=== PATIENT | female | born 1940 | race Caucasian/White ===

== ENCOUNTER → 2017-03-18 | Outpatient (CLI) | payer BC ==
[~2017-03-18] MED LIST: ASPI81TA28 PO; ATOR10TA82 PO; CLC/300 PO; FURO-85 PO; LISI-729 PO; METO25TA56 PO; MULT-513 PO
[2017-03-18 16:27] LABS: HEMATOCRIT 43.6 % (37-47); MEAN CELL VOLUME 91.6 fL (80-100); MEAN CORPUSCULAR HEMOGLOBIN 29.4 pg (25-34); MEAN CORPUSCULAR HGB CONC 32.1 g/dl (32-36); MEAN PLATELET VOLUME 12.4 fL (7.4-10.4); PLATELET COUNT 202 K/uL (130-400); RED BLOOD COUNT 4.76 M/uL (4.2-5.4); WHITE BLOOD COUNT 3.61 K/uL (4.8-10.8)
[2017-03-18 16:41] LABS: ALT/SGPT 47 U/L (12-78); AST/SGOT 28 U/L (15-37); BLOOD UREA NITROGEN 14 mg/dl (7-18); BUN/CREATININE RATIO 21.4 (10-20); CALCIUM 9.3 mg/dl (8.5-10.1); CARBON DIOXIDE 31 mmol/L (21-32); CHLORIDE 108 mmol/L (98-107); CREATININE 0.63 mg/dl (0.60-1.20); GLUCOSE 84 mg/dl (70-99); POTASSIUM 4.3 mmol/L (3.5-5.1); SODIUM 143 mmol/L (136-145)
[2017-03-18 16:43] LABS: ALB/GLOB RATIO 1.2 (0.9-2); ALKALINE PHOSPHATASE 83 U/L (45-117); CHOLESTEROL 179 mg/dl (0-200); CHOLESTEROL/HDL RATIO 2.8; HDL CHOLESTEROL 63 mg/dl; LDL CHOLESTEROL CALCULATED 98 mg/dl; TRIGLYCERIDES 90 mg/dl (0-150); VERY LOW DENSITY LIPOPROT CALC 18 mg/dl
== END | disposition home or self-care (01) ==
LOC: C.LABBFT 11:35
PROVIDERS: ATTEND Internal Medicine
DX: I25.10 Atherosclerotic heart disease of native coronary artery without angina pectoris (principal); E78.5 Hyperlipidemia, unspecified

== ENCOUNTER → 2017-05-02 | Outpatient (CLI) | payer BC ==
--- NOTE | 2017-05-02 13:13 | DIAGNOSTIC IMAGING REPORT ---
RIGHT ANKLE MIN 3 VIEWS ROUTINE CLINICAL HISTORY: Right ankle pain. Trauma. COMPARISON: None. DISCUSSION: No acute fractures or dislocations are visualized. The ankle mortise appears intact. There is minimal soft tissue swelling. There is no evidence for soft tissue swelling. IMPRESSION: No acute fractures or dislocations identified. Electronically signed by: Bob Posey M.D. 05/02/2017 1:11 PM Dictated Date/Time: 05/02/2017 1:11 PM
== END | disposition home or self-care (01) ==
LOC: C.RAD 12:37
PROVIDERS: ATTEND Physician Assistant Medical
DX: M25.571 Pain in right ankle and joints of right foot (principal)

== ENCOUNTER → 2017-10-03 | Outpatient (CLI) | payer BC ==
[2017-10-03 12:27] LABS: HEMATOCRIT 45.6 % (37-47); MEAN CELL VOLUME 90.7 fL (80-100); MEAN CORPUSCULAR HEMOGLOBIN 30.2 pg (25-34); MEAN CORPUSCULAR HGB CONC 33.3 g/dl (32-36); MEAN PLATELET VOLUME 12.4 fL (7.4-10.4); PLATELET COUNT 196 K/uL (130-400); RED BLOOD COUNT 5.03 M/uL (4.2-5.4); WHITE BLOOD COUNT 4.76 K/uL (4.8-10.8)
[2017-10-03 12:36] LABS: ALT/SGPT 27 U/L (12-78); BLOOD UREA NITROGEN 16 mg/dl (7-18); BUN/CREATININE RATIO 27.1 (10-20); CALCIUM 9.7 mg/dl (8.5-10.1); CARBON DIOXIDE 28 mmol/L (21-32); CHLORIDE 106 mmol/L (98-107); CHOLESTEROL 203 mg/dl (0-200); CREATININE 0.59 mg/dl (0.60-1.20); GLUCOSE 90 mg/dl (70-99); POTASSIUM 4.2 mmol/L (3.5-5.1); SODIUM 141 mmol/L (136-145); TRIGLYCERIDES 120 mg/dl (0-150); VERY LOW DENSITY LIPOPROT CALC 24 mg/dl
[2017-10-03 12:39] LABS: ALB/GLOB RATIO 1.2 (0.9-2); ALKALINE PHOSPHATASE 90 U/L (45-117); AST/SGOT 18 U/L (15-37); HDL CHOLESTEROL 68 mg/dl; LDL CHOLESTEROL CALCULATED 111 mg/dl
== END | disposition home or self-care (01) ==
LOC: C.LABBFT 10:26
PROVIDERS: ATTEND Internal Medicine
DX: E78.5 Hyperlipidemia, unspecified (principal); I25.10 Atherosclerotic heart disease of native coronary artery without angina pectoris

== ENCOUNTER → 2017-10-11 | Outpatient (CLI) | payer BC ==
[2017-10-11 18:10] LABS: LYME DISEASE AB IGG NEG (NEG); LYME DISEASE AB IGM NEG (NEG)
== END | disposition home or self-care (01) ==
LOC: C.LABBFT 14:39
PROVIDERS: ATTEND Internal Medicine
DX: T14.8XXA Other injury of unspecified body region, initial encounter (principal); W57.XXXA Bitten or stung by nonvenomous insect and other nonvenomous arthropods, initial encounter

== ENCOUNTER → 2018-06-22 | Outpatient (CLI) | payer BC ==
--- NOTE | 2018-06-22 16:01 | MAMMOGRAPHY REPORT ---
BILATERAL DIGITAL SCREENING MAMMOGRAM TOMOSYNTHESIS WITH CAD: 06/22/2018 TECHNIQUE: The study was acquired using full field digital technology and interpreted from soft copy. Breast tomosynthesis in addition to standard 2D mammography was performed. Current study was also ev aluated with a Computer Aided Detection (CAD) system. COMPARISON: Comparison is made to exams dated: 01/16/2015 mammogram, 01/14/2014 mammogram, 01/11/2013 m ammogram, 01/10/2012 mammogram, and 01/07/2011 mammogram - [facility]. BREAST COMPOSITION: There are scattered areas of fibroglandular density in both breasts. FINDINGS: No suspicious masses, calcifications, or areas of architectural distortion are noted in either breast . There has been no significant interval change compared to prior exams. Asymmetries in the left sub areolar breast on the cc view are stable compared to multiple prior exams including the 2010 exam. IMPRESSION: ACR BI-RADS CATEGORY 2: BENIGN There is no mammographic evidence of malignancy. A 1 year screening mammogram is recommended.( 019) The patient will receive written notification of the results. Some breast cancers are not detected with mammography. A negative mammographic report should not joan y biopsy if a clinically suggestive mass is present. Maureen Iyer M.D. ah/:06/22/2018 15:14:45 Compliance Nurse: RT Guillermo(R)(M), [facility] letter sent: Normal 1/2 BI-RADS Code: ACR BI-RADS Category 2: Benign
== END | disposition home or self-care (01) ==
LOC: C.MAMM 13:47
PROVIDERS: ATTEND Internal Medicine
DX: M85.852 Other specified disorders of bone density and structure, left thigh (principal); M85.88 Other specified disorders of bone density and structure, other site; Z12.31 Encounter for screening mammogram for malignant neoplasm of breast

== ENCOUNTER 2019-06-09 03:51 | Observation (INO) ==
[2019-06-09 04:43] LABS: Basophils # (auto) 0.05 K/uL (0-0.2); Eosinophils # (auto) 0.28 K/uL (0-0.5); Eosinophils % (auto) 5.6 %; Hematocrit (blood only) 45.3 % (37-47); Hemoglobin 15.3 g/dL (12.0-16.0); Immature Granulocytes # (auto) 0.01 K/uL (0.00-0.02); Immature Granulocytes % (auto) 0.2 %; Lymphocytes # (auto) 2.24 K/uL (1.2-3.4); Lymphocytes % (auto) 44.7 %; Mean Corpuscular Hgb Conc 33.8 g/dL (32-36); Mean Corpuscular Volume 91.9 fL (80-100); Mean Platelet Volume 12.8 fL (7.4-10.4); Monocytes # (auto) 0.34 K/uL (0.11-0.59); Monocytes % (auto) 6.8 %; Neutrophils # (auto) 2.09 K/uL (1.4-6.5); Neutrophils % (auto) 41.7 %; Platelet Count 197 K/uL (130-400); RDW Coefficient of Variation 12.7 % (11.5-14.5); RDW Standard Deviation 42.7 fL (36.4-46.3); Red Blood Count 4.93 M/uL (4.2-5.4); White Blood Count 5.01 K/uL (4.8-10.8)
[2019-06-09 04:59] LABS: Alanine Aminotransferase 31 U/L (12-78); Albumin Globulin Ratio 1.3 (0.9-2); Albumin Level 4.1 gm/dl (3.4-5.0); Alkaline Phosphatase 90 U/L (45-117); Aspartate Aminotransferase 24 U/L (15-37); BUN Creatinine Ratio 25.2 (10-20); Bilirubin,Total 1.7 mg/dl (0.2-1); Blood Urea Nitrogen 17 mg/dl (7-18); Carbon Dioxide 27 mmol/L (21-32); Chloride 106 mmol/L (98-107); Creatinine Clr Calc Pharmacy 55.6 ml/min; Est GFR (African American) 97.1; Est GFR (Non-African American) 83.8; Globulin 3.1 gm/dl (2.5-4.0); Glucose 100 mg/dl (70-99); Potassium 4.2 mmol/L (3.5-5.1); Sodium 140 mmol/L (136-145); Total Protein 7.2 gm/dl (6.4-8.2); Troponin I < 0.015 ng/ml (0-0.045)
--- NOTE | 2019-06-09 06:32 | History & Physical Report ---
Date of Service June 09, 2019 Assessment & Plan (1) Substernal chest pain relieved by nitroglycerin: Substernal chest discomfort/relieved by nitroglycerin sublingual x1 borrowed from her - The patient will be admitted to telemetry for serial cardiac enzymes, serial EKG's, cardiac rhythm monitoring and a 2-D echocardiogram with Dopplers. Continue aspirin 162 mg p.o. daily. EKG shows normal sinus rhythm at 83 bpm, with isolated PVC, there are no acute ST-T changes, no change compared to March 08, 2011. Patient was noted while in the ED to have asymptomatic PACs on the monitor. Consult cardiology. Present on Admission?: Yes (2) Hyperlipidemia: Continue atorvastatin 40 mg p.o. at bedtime. 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 Present on Admission?: Yes History of Present Illness Chief Complaint: The patient presents to the emergency department with complaint of being awoken from sleep this morning approximately 3 AM by discomfort across her chest. Primary Care Provider: Jeff Brand MD The patient is a 79-year-old female with a past medical history including hyperlipidemia, who reports to the emergency department with complaint of discomfort across her chest waking her up from sleep at 3 AM this morning. She reports she sat up on the edge of the bed for a few minutes to see if it would go away and it did not. She then got up and walked a little bit, reporting that she did not have shortness of breath at rest, but did have some dyspnea on exertion, and did not have any improvement in the chest discomfort. She reports that she took a sublingual nitroglycerin tablet of her husbands, and her symptoms went completely away. She reports that about 1 month ago, she had had a interval of lightheadedness, dizziness and nausea, that was self-limited, and was not accompanied by chest discomfort or any other symptoms at that time. She had been in usual state of health until waking up at 3:00 this morning with the symptoms. She reports that yesterday she did walk around at the [employer], and ran a number of errands, then ate her usual meal at the [email or web address]. But did not feel any different type of symptoms in the evening until awoken at 3:00 AM. She does report taking her 2 baby aspirin every morning, and did take them yesterday as usual. Allergies Allergy/AdvReac Type Severity Reaction Status Date / Time amoxicillin Allergy Unknown DIFFUSE Unverified 12/25/14 09:00 ERYTHEMA clavulanic acid Allergy Unknown DIFFUSE Unverified 06/09/19 04:27 ERYTHEMA Iodinated Contrast- Oral and Allergy Unknown CT DYE Verified 06/09/19 04:27 IV Dye Home Medications Home Medications Medication Instructions Recorded Confirmed Type aspirin 81 mg chewable tablet 162 mg PO DAILY tab 04/17/19 06/09/19 History atorvastatin 40 mg tablet 40 mg PO HS #90 tab 04/17/19 06/09/19 History clindamycin HCl 300 mg capsule 600 mg PO UD PRN #2 cap 04/17/19 06/09/19 History Past Med/Surg History Medical History Hyperlipidemia (Chronic) Allergic reaction (Acute) Surgical History H/O mitral valve replacement History of heart bypass surgery Family History Other Family history non-contributory Social History Feels Safe at Home: Yes Smoking Status: Never smoker Review of Systems Review of Systems: The patient denies palpitations, shortness of breath at rest, cough, lower extremity swelling, sore throat, fevers, chills, sweats, weight change, fatigue, nausea, vomiting, diarrhea, constipation, abdominal pain, pelvic pain, blood in urine or stool, dysuria, urinary frequency or urgency, headache, memory loss, loss of consciousness, rash, abnormal bruising or bleeding, focal or generalized weakness, numbness or tingling in arms or legs, generalized arthralgias or myalgias, back or neck pain, or night sweats. The review of systems is otherwise negative other than for that already noted above, and at least 10 systems have been reviewed. Physical Exam Physical Exam: The patient is awake, alert and oriented 3, well developed and well nourished, normocephalic and atraumatic, lying in bed and in no acute distress. HEENT--PERRL, EOMI, mucous membranes and oropharynx normal. Neck--supple. No JVD. No bruits. Thyroid normal, trachea midline, no adenopathy. Heart--normal S1 and S2. No murmurs, rubs or gallops. Lungs--clear bilaterally, no respiratory distress, no accessory muscle use. Abdomen--normal bowel sounds and soft. Nontender. Nondistended. Extremities--no cyanosis or clubbing. No edema. There are good distal pulses b/l. Dermatologic--normal skin turgor, normal color, no abnormal lymph nodes, no rash. Neurologic--cranial nerves II through XII grossly intact. Rheumatologic--normal range of motion. Psychiatric--normal affect. Results & Data Vital Signs (Past 12 Hours) Vital Signs Temp Pulse Pulse Resp BP BP Pulse Ox 06/09/19 05:23 71 18 133/72 96 06/09/19 04:01 100 06/09/19 03:58 98.2 F 89 20 183/92 H 100 Laboratory Results Laboratory Results WBC 5.01 K/uL (4.8-10.8) 06/09/19 04:11 RBC 4.93 M/uL (4.2-5.4) 06/09/19 04:11 Hgb 15.3 g/dL (12.0-16.0) 06/09/19 04:11 Hct 45.3 % (37-47) 06/09/19 04:11 MCV 91.9 fL (80-100) 06/09/19 04:11 MCH 31.0 pg (25-34) 06/09/19 04:11 MCHC 33.8 g/dL (32-36) 06/09/19 04:11 RDW Std Deviation 42.7 fL (36.4-46.3) 06/09/19 04:11 RDW Coeff of Lalito 12.7 % (11.5-14.5) 06/09/19 04:11 Plt Count 197 K/uL (130-400) 06/09/19 04:11 MPV 12.8 fL (7.4-10.4) H 06/09/19 04:11 Immature Gran % (Auto) 0.2 % 06/09/19 04:11 Neut % (Auto) 41.7 % 06/09/19 04:11 Lymph % (Auto) 44.7 % 06/09/19 04:11 [place] % (Auto) 6.8 % 06/09/19 04:11 Eos % (Auto) 5.6 % 06/09/19 04:11 Baso % (Auto) 1.0 % 06/09/19 04:11 Immature Gran # (Auto) 0.01 K/uL (0.00-0.02) 06/09/19 04:11 Neut # (Auto) 2.09 K/uL (1.4-6.5) 06/09/19 04:11 Lymph # (Auto) 2.24 K/uL (1.2-3.4) 06/09/19 04:11 [place] # (Auto) 0.34 K/uL (0.11-0.59) 06/09/19 04:11 Eos # (Auto) 0.28 K/uL (0-0.5) 06/09/19 04:11 Baso # (Auto) 0.05 K/uL (0-0.2) 06/09/19 04:11 Sodium 140 mmol/L (136-145) 06/09/19 04:11 Potassium 4.2 mmol/L (3.5-5.1) 06/09/19 04:11 Chloride 106 mmol/L (98-107) 06/09/19 04:11 Carbon Dioxide 27 mmol/L (21-32) 06/09/19 04:11 Anion Gap 7.0 (3-11) 06/09/19 04:11 BUN 17 mg/dl (7-18) 06/09/19 04:11 Creatinine 0.68 mg/dl (0.6-1.2) 06/09/19 04:11 Est Cr Clr Drug Dosing 55.6 ml/min 06/09/19 04:11 Est GFR ( Amer) 97.1 06/09/19 04:11 Est GFR (Non-Af Amer) 83.8 06/09/19 04:11 BUN/Creatinine Ratio 25.2 (10-20) H 06/09/19 04:11 Glucose 100 mg/dl (70-99) H 06/09/19 04:11 Calcium 9.0 mg/dl (8.5-10.1) 06/09/19 04:11 Total Bilirubin 1.7 mg/dl (0.2-1) H 06/09/19 04:11 AST 24 U/L (15-37) 06/09/19 04:11 ALT 31 U/L (12-78) 06/09/19 04:11 Alkaline Phosphatase 90 U/L (45-117) 06/09/19 04:11 Troponin I < 0.015 ng/ml (0-0.045) 06/09/19 04:11 Total Protein 7.2 gm/dl (6.4-8.2) 06/09/19 04:11 Albumin 4.1 gm/dl (3.4-5.0) 06/09/19 04:11 Globulin 3.1 gm/dl (2.5-4.0) 06/09/19 04:11 Albumin/Globulin Ratio 1.3 (0.9-2) 06/09/19 04:11 Specimen Hemolysis 06/09/19 04:11 Code Status & VTE Plan Code Status Full code VTE Prophylaxis Plan VTE Prophylaxis will be ordered: Yes PG Care Time/CCT Total # of Minutes Spent Total Time Spent with Patient: Total time spent is greater than 50% in coordination of care (as documented) at patient's floor/unit and/or counseling patient:
[2019-06-09 06:48] LABS: Chol HDL Ratio 3; Cholesterol 183 mg/dl (0-200); HDL Cholesterol 73 mg/dl; LDL Cholesterol Calculated 88 mg/dl; Triglycerides 109 mg/dl (0-150); VLDL Cholesterol 22 mg/dl
[2019-06-09] MEDS ORDERED: ONDANSETRON INJ 2 MG/ML 2 ML VIAL IV PRN (07:24)
[2019-06-09] MEDS ORDERED: ALUMINUM/MAGNESIUM SUSP 30 ML UDC PO PRN (07:24)
[2019-06-09] MEDS ORDERED: ACETAMINOPHEN 325 MG TAB PO PRN (07:24)
[2019-06-09] MEDS ORDERED: ACETAMINOPHEN 1000 MG/100 ML IV IV PRN (07:24)
[2019-06-09] MEDS ORDERED: MAGNESIUM HYDROXIDE SUSP 30 ML UDC PO PRN (07:24)
--- NOTE | 2019-06-09 07:34 | Emergency Department Note ---
Entered by Candelario Hussein acting as a scribe for Jessica Ball DO History of Present Illness General Chief complaint: Cardiac Assessment Stated complaint: CHEST PAIN,PRESSURE,NECK,BACK Time Seen by Provider: 06/09/19 04:02 Source: patient History of Present Illness Provider complaint: Chest pain Onset (ago): hour(s) (1.5) Location: chest Radiation: back and neck Pain Consistency: + now resolved Relieved By: + medication Exacerbated By: + none Associated symptoms: no nausea/vomiting and no shortness of breath The patient is a 79 year old female who presents to the Emergency Room with complaints of chest pains that started about 1.5 hours ago and has since resolved. The patient states the chest pressure radiates to her back and neck. She also notes that she has some slight numbness in her arms, but no pain. When the symptoms began, the patient tried sitting up and walking around her room to try to relieve it but that did not work so she took one of her 's Nitroglycerin tablets. Shortly after taking the medication her symptoms resolved but she notes she still is not feeling right. The patient reports feeling fine prior to going to bed and she has been eating and drinking normally. The patient mentioned that she had mitral valve replacement and bypass surgery done 5 years ago. Since this time, she has not experienced any symptoms similar to today's. The patient states she states two Aspirin each morning and Atorvastatin every night. Home Medications Home Medications Medication Instructions Recorded Confirmed Type aspirin 81 mg chewable tablet 162 mg PO DAILY tab 04/17/19 06/09/19 History atorvastatin 40 mg tablet 40 mg PO HS #90 tab 04/17/19 06/09/19 History clindamycin HCl 300 mg capsule 600 mg PO UD PRN #2 cap 04/17/19 06/09/19 History Allergies Allergy/AdvReac Type Severity Reaction Status Date / Time amoxicillin Allergy Unknown DIFFUSE Unverified 12/25/14 09:00 ERYTHEMA clavulanic acid Allergy Unknown DIFFUSE Unverified 06/09/19 04:27 ERYTHEMA Iodinated Contrast- Oral and Allergy Unknown CT DYE Verified 06/09/19 04:27 IV Dye Past Med/Surg History Medical History Hyperlipidemia (Chronic) Allergic reaction (Acute) Surgical History H/O mitral valve replacement History of heart bypass surgery Family History Other Family history non-contributory Social History Preferred Language: Lithuanian Communication Ability: Effective Beliefs That Will Affect Care: None marital status: Current Living Situation: Spouse and Family Feels Safe at Home: Yes Smoking Status: Never smoker Hx Alcohol Use: No Hx Substance Use: No Review of Systems See HPI for pertinent positives & negatives. and A total of 10 systems reviewed and were otherwise negative Physical Exam Vital Signs Vital Signs - 24 hr 06/09/19 03:58 06/09/19 04:01 06/09/19 05:23 Temperature 36.8 C Temperature Source Oral Sepsis Recent Fever Within 48 Hours No Sepsis New/Unexplained Change in Mental Status No Sepsis Action Taken by Nursing No Action Required Pulse Rate 89 Pulse Rate [Apical] 71 Pulse Rhythm Regular Pulse Strength Normal Respiratory Rate 20 18 Respiratory Effort / Characteristics Non-Labored Non-Labored Spontaneous Respiratory Depth Normal Normal Respiratory Pattern Regular Blood Pressure 183/92 H Blood Pressure [Right Arm] 133/72 Blood Pressure Mean 122 Blood Pressure Mean [Right Arm] 92 Blood Pressure Position Lying Pulse Oximetry 100 100 96 Oxygen Delivery Method Room Air Room Air Room Air HEENT: Head - normocephalic and atraumatic Pupils are equal, round, and reactive to light. Extraocular eye muscles are intact, and sclera are anicteric. Nose - moist nasal mucosa without discharge. Mouth - moist buccal mucosa. Oropharynx is nonerythematous and there is no tonsillar exudate or edema noted. Neck: Supple; no JVD, nuchal rigidity, cervical lymphadenopathy, or auscultated bruits. Heart: Regular rate and rhythm. There is a normal S1 and S2 with no murmurs, clicks, or gallops appreciated. Lungs: Clear to auscultation bilaterally with no wheezes, rales, or rhonchi. Abdomen: Soft, completely nontender, nondistended, with good bowel sounds. There are no palpable pulsatile masses or hepatosplenomegaly. There is no guarding, rigidity, or rebound noted. Extremities: No evidence of cyanosis, clubbing, or edema. There are easily palpable peripheral pulses. Skin: warm and dry with good turgor and no rashes. Course 0423: Past medical records reviewed. The patient was evaluated in room A03, and a complete history and physical examination were performed. Laboratory studies were drawn as above. A twelve-lead EKG was obtained as described above. She was observed on the media monitor and pulse oximeter. She will go for chest x-ray. 0518: I reevaluated the patient and she is still not having any chest pains. Dr. Hernandez was paged. I reviewed the results of the laboratory studies with the patient. 0542: I spoke to Dr. Hernandez [facility] Hospitalist about the patient's case and he is going to accept her for further evaluation. Consultations Consultation #1: I spoke to Dr. Hernandez [facility] Hospitalist about the patient's case and he is going to accept her for further evaluation. Time: 05:42 Administered Medications Aspirin (Ecotrin Ectab) 162 mg PO DAILY DARRELL Stop: 07/09/19 08:59 Last Admin: 06/09/19 08:09 Dose: 162 mg Documented by: [id number] Medical Decision Making Differential Diagnosis The patient is a 79 year old female who presents to the Emergency Room with complaints of chest pains that started about 1.5 hours ago and has since resolved. Differential diagnosis includes GERD, ACS, STEMI, aortic dissection, pneumonia, amongst others Medical Records Attestation: I reviewed the patient's medical records. Home Medications Current Medication List: was personally reviewed by me Laboratory Data Attestation: I reviewed the patient's lab results. Result diagrams: 06/09/19 04:11 06/09/19 04:11 Lab Results 06/09/19 06/09/19 06/09/19 Range/Units 04:11 04:11 04:11 WBC 5.01 (4.8-10.8) K/uL RBC 4.93 (4.2-5.4) M/uL Hgb 15.3 (12.0-16.0) g/dL Hct 45.3 (37-47) % MCV 91.9 (80-100) fL MCH 31.0 (25-34) pg MCHC 33.8 (32-36) g/dL RDW Std Deviation 42.7 (36.4-46.3) fL RDW Coeff of Lalito 12.7 (11.5-14.5) % Plt Count 197 (130-400) K/uL MPV 12.8 H (7.4-10.4) fL Immature Gran % (Auto) 0.2 % Neut % (Auto) 41.7 % Lymph % (Auto) 44.7 % [place] % (Auto) 6.8 % Eos % (Auto) 5.6 % Baso % (Auto) 1.0 % Immature Gran # (Auto) 0.01 (0.00-0.02) K/uL Neut # (Auto) 2.09 (1.4-6.5) K/uL Lymph # (Auto) 2.24 (1.2-3.4) K/uL [place] # (Auto) 0.34 (0.11-0.59) K/uL Eos # (Auto) 0.28 (0-0.5) K/uL Baso # (Auto) 0.05 (0-0.2) K/uL Sodium 140 (136-145) mmol/L Potassium 4.2 (3.5-5.1) mmol/L Chloride 106 (98-107) mmol/L Carbon Dioxide 27 (21-32) mmol/L Anion Gap 7.0 (3-11) BUN 17 (7-18) mg/dl Creatinine 0.68 (0.6-1.2) mg/dl Est Cr Clr Drug Dosing 55.6 ml/min Est GFR ( Amer) 97.1 Est GFR (Non-Af Amer) 83.8 BUN/Creatinine Ratio 25.2 H (10-20) Glucose 100 H (70-99) mg/dl Estimat Average Glucose 120 mg/dl Hemoglobin A1c 5.8 H (4.5-5.6) % Calcium 9.0 (8.5-10.1) mg/dl Total Bilirubin 1.7 H (0.2-1) mg/dl AST 24 (15-37) U/L ALT 31 (12-78) U/L Alkaline Phosphatase 90 (45-117) U/L Troponin I < 0.015 (0-0.045) ng/ml Total Protein 7.2 (6.4-8.2) gm/dl Albumin 4.1 (3.4-5.0) gm/dl Globulin 3.1 (2.5-4.0) gm/dl Albumin/Globulin Ratio 1.3 (0.9-2) Specimen Hemolysis Imaging Data Attestation: I personally reviewed and interpreted this imaging study as follows: My Impression: CHEST XRAY 1 View Questionable opacity in the left lung base. No obvious consolidation, no pleural effusion. ECG Data Attestation: I personally reviewed and interpreted this ECG as follows: Indication: chest pain Rate (beats per minute): 83 Rhythm: normal sinus Findings: + PVC; no acute ischemic change Blood Pressure Blood Pressure Findings: Normal blood pressure Blood Pressure Disposition: further management by hospitalist DAYSI Narrative The patient is a 79 year old female who presents to the Emergency Room with complaints of chest pains that started about 1.5 hours ago and has since resolved. The patient has an extensive cardiac history with previous valve replacement and one-vessel coronary artery bypass grafting. This is the patient's first episode of chest discomfort since her surgery which was 3 years ago. The chest discomfort was described as pressure and radiated up into her throat and shoulders. It was relieved by taking nitroglycerin. Troponin was negative. E KG was unremarkable. However, I remain concerned about the patient's presentation. Her heart score was 4. I discussed the case with the [facility] Hospitalist and they will evaluate for further management. Impression & Plan Substernal chest pain relieved by nitroglycerin Discharge Plan Visit Data *Final* Discharge Date/Time: 06/09/19 06:57 Chief Complaint: Cardiac Assessment Stated Complaint: CHEST PAIN,PRESSURE,NECK,BACK ED Provider: Jessica Ball Discharge Problem: Substernal chest pain relieved by nitroglycerin Patient Disposition: Admitted As Inpatient Condition: Good Discharge Instructions Interventions: ED Discharge Assessment Last Done: 06/09/19 06:57 The scribe's documentation has been prepared under my direction and personally reviewed by me in its entirety. I confirm that the note above accurately reflects all work, treatment, procedures, and medical decision making performed by me.
--- NOTE | 2019-06-09 07:44 | XRay Report ---
XR chest 1V portable CLINICAL HISTORY: 79 years-old Female presenting with Chest Pain. TECHNIQUE: Portable upright AP view of the chest was obtained. COMPARISON: 03/08/2011. FINDINGS: Median sternotomy wires and mitral annular ring noted. Atherosclerosis of the aortic arch. Cardiac si lhouette mildly enlarged. No focal opacity. No large effusion or pneumothorax. Osseous structures nor mal. Upper abdomen normal. IMPRESSION: 1. Mild cardiomegaly. No other convincing evidence of acute cardiopulmonary disease. Electronically signed by: Fitz Willams M.D. 06/09/2019 7:43 AM
[2019-06-09 07:47] LABS: Estimated Average Glucose 120 mg/dl; Hemoglobin A1C 5.8 % (4.5-5.6)
[2019-06-09] MEDS ORDERED: ASPIRIN 81 MG ECTAB PO SCH (09:00)
--- NOTE | 2019-06-09 10:10 | Cardiology Consultation ---
Date of Consultation June 09, 2019 Assessment & Plan (1) Substernal chest pain relieved by nitroglycerin: She has chest discomfort which by her description is quite typical of myocardial ischemia, however the duration and lack of objective findings including electrocardiogram, enzymes so far, and echocardiography suggests that this may not have been myocardial ischemia. At this point I would continue with the third set of enzymes, I do not know that I would do further testing for this in the hospital unless something objective shows up. We could consider a stress test but not sure would keep her over the weekend for that, we cannot do it this weekend. (2) DIAZ (dyspnea on exertion): She has long-standing dyspnea on exertion, apparently that has not been worsening. The cause of that has not been clear in the past but it evidently does not interfere with her activities. (3) CAD (coronary artery disease): She does have coronary disease and had bypass at the time of her valve surgery, I do not know that she had angina before that and had not sure she is having angina since. It is possible however, she certainly could have had progression of disease. My feeling is that the symptoms are noncardiac as noted above, however doing a stress test in the future may be a consideration. (4) History of repair of mitral valve: She had a mitral valve repair which on echocardiography recently in the office and here appears to be functioning well. On exam her findings are consistent as well. History of Present Illness Reason for Consultation: Chest pain Attending Physician: Braxton Dumas DO History of Present Illness This is a 79-year-old woman who follows with Dr. Capellan in our office. She has a history of a mitral valve repair using an angioplasty band in 2014, at the same time she had a single-vessel bypass with saphenous vein graft to the second diagonal. She has had difficulty with dizziness, which has been felt to be vertiginous. Her last echocardiogram was April 10, 2019 and that showed low normal left ventricular function with ejection fraction 50 to 55% with mild mitral regurgitation. This was felt similar to December 2016. She now presents with substernal chest discomfort relieved by nitroglycerin. Electrocardiography demonstrates sinus rhythm with no significant abnormality and no ischemic change. Cardiac enzymes x2 are negative. To me she describes waking up at 3 AM, she was describing some discomfort in her precordium, with radiation to her back into her neck. The symptoms were getting worse, therefore she took a nitroglycerin and evidently the symptoms were relieved before she came to the emergency room. She believes the episode lasted 20 minutes to 1/2-hour. She did not have other symptoms associated with it. She does describe dyspnea on exertion, she has had that for a long time and evidently that is not changing. When asked if she has chest discomfort with exertion she says "nothing like what happened this time ", when pressed as to whether she actually has discomfort it is hard to tell whether she does but she is consistent that it has not been changing recently. She apparently had an episode similar to this perhaps a year ago which was not investigated, I am not sure if she told anyone about it. She has felt well since arrival in the hospital. Allergies Allergy/AdvReac Type Severity Reaction Status Date / Time amoxicillin Allergy Unknown DIFFUSE Unverified 12/25/14 09:00 ERYTHEMA clavulanic acid Allergy Unknown DIFFUSE Unverified 06/09/19 04:27 ERYTHEMA Iodinated Contrast- Oral and Allergy Unknown CT DYE Verified 06/09/19 04:27 IV Dye Home Medications Home Medications Medication Instructions Recorded Confirmed Type aspirin 81 mg chewable tablet 162 mg PO DAILY tab 04/17/19 06/09/19 History atorvastatin 40 mg tablet 40 mg PO HS #90 tab 04/17/19 06/09/19 History clindamycin HCl 300 mg capsule 600 mg PO UD PRN #2 cap 04/17/19 06/09/19 History Patient History Medical History Hyperlipidemia (Chronic) Allergic reaction (Acute) Surgical History H/O mitral valve replacement History of heart bypass surgery Family History Other Family history non-contributory Social History Preferred Language: Irish Communication Ability: Effective Beliefs That Will Affect Care: None marital status: Current Living Situation: Spouse and Family Feels Safe at Home: Yes Smoking Status: Never smoker Hx Alcohol Use: No Hx Substance Use: No Review of Systems Review of Systems: All systems reviewed & are unremarkable except as noted in HPI & below Physical Exam Physical Exam: Constitutional: Alert, cooperative and in no distress. HEENT: Unremarkable Neck: No jugular venous distention, carotid pulses are normal and equal bilaterally without bruits. Pulmonary: Clear to auscultation bilaterally. Cardiac: Regular rhythm with a grade 2/6 holosystolic murmur at the apex, no gallop or rub. Abdomen: Soft, nontender with normal bowel sounds. Extremities: No edema. Distal pulses intact. Neurologic: No focal findings. Gait is steady. Skin: No rash, ecchymoses or petechiae. Results & Data Vital Signs (Past 12 Hours) Vital Signs Temp Pulse Pulse Resp BP BP Pulse Ox 06/09/19 07:37 36.6 C 69 18 158/88 H 98 06/09/19 06:38 70 18 169/77 H 99 06/09/19 05:23 71 18 133/72 96 06/09/19 04:01 100 06/09/19 03:58 36.8 C 89 20 183/92 H 100 Diagnostic Findings Electrocardiogram on arrival demonstrates sinus rhythm with 1 PVC, no significant abnormalities Telemetry: Sinus rhythm, frequent PACs and PVCs Echocardiogram: Reviewed at bedside, no significant abnormality, appears consistent with her echocardiogram from several months ago
--- NOTE | 2019-06-09 14:22 | Discharge Summary ---
Date of Service June 09, 2019 Admission HPI Per Admitting Provider The patient is a 79-year-old female with a past medical history including hyperlipidemia, who reports to the emergency department with complaint of discomfort across her chest waking her up from sleep at 3 AM this morning. She reports she sat up on the edge of the bed for a few minutes to see if it would go away and it did not. She then got up and walked a little bit, reporting that she did not have shortness of breath at rest, but did have some dyspnea on exertion, and did not have any improvement in the chest discomfort. She reports that she took a sublingual nitroglycerin tablet of her husbands, and her sym ptoms went completely away. She reports that about 1 month ago, she had had a interval of lightheadedness, dizziness and nausea, that was self-limited, and was not accompanied by chest discomfort or any other symptoms at that time. She had been in usual state of health until waking up at 3:00 this morning with the symptoms. She reports that yesterday she did walk around at the [employer], and ran a number of errands, then ate her usual meal at the [employer]. But did not feel any different type of symptoms in the evening until awoken at 3:00 AM. She does report taking her 2 baby aspirin every morning, and did take them yesterday as usual. Admission Exam Per Admitting Provider The patient is awake, alert and oriented 3, well developed and well nourished, normocephalic and atraumatic, lying in bed and in no acute distress. HEENT--PERRL, EOMI, mucous membranes and oropharynx normal. Neck--supple. No JVD. No bruits. Thyroid normal, trachea midline, no adenopathy. Heart--normal S1 and S2. No murmurs, rubs or gallops. Lungs--clear bilaterally, no respiratory distress, no accessory muscle use. Abdomen--normal bowel sounds and soft. Nontender. Nondistended. Extremities--no cyanosis or clubbing. No edema. There are good distal pulses b/l. Dermatologic--normal skin turgor, normal color, no abnormal lymph nodes, no rash. Neurologic--cranial nerves II through XII grossly intact. Rheumatologic--normal range of motion. Psychiatric--normal affect. Principal Diagnosis Atypical chest pain Discharge Exam Constitutional WD/WN, vitals as above Eyes PERRL, conjunctivae normal, anicteric sclerae ENMT external ear and nose normal, oropharynx normal Neck trachea midline, no thyromegaly Respiratory normal respiratory effort, lungs clear to auscultation Cardiovascular RRR, no murmur, no edema Gastrointestinal (Abdomen) normal bowel sounds, soft, nontender, no hepatosplenomegaly Musculoskeletal no cyanosis or clubbing, extremities motor strength 5/5 Skin no rashes, warm and dry Neurologic patellar DTR's 2+ bilat, sensation intact and PERRL, EOMI, accommodation nl, no face palsy, no dysarthria Psychiatric A+Ox3, euthymic affect Lymphatic no cervical or axillary lymphadenopathy Discharge Data Allergies Allergy/AdvReac Type Severity Reaction Status Date / Time amoxicillin Allergy Unknown DIFFUSE Unverified 12/25/14 09:00 ERYTHEMA clavulanic acid Allergy Unknown DIFFUSE Unverified 06/09/19 04:27 ERYTHEMA Iodinated Contrast- Oral and Allergy Unknown CT DYE Verified 06/09/19 04:27 IV Dye Consultations 06/09/19 05:26 ED Decision to Admit Stat 06/09/19 07:24 Consult Cardiology Routine Consult Case Management - Discharge Planning Routine Hospital Course (1) Substernal chest pain relieved by nitroglycerin: Substernal chest discomfort/relieved by nitroglycerin sublingual x1 borrowed from her - troponin negative x 3 sets, no changes on EKG echocardiogram done but pending seen by Dr. Garcia with [facility]ology no further testing while here, no evidence of ACS recommends stress testing this week patient will call Dr. Capellan's office to arrange for testing advised patient to not exert herself until she gets the stress test done Continue aspirin 162 mg p.o. daily. (2) Hyperlipidemia: Continue atorvastatin 40 mg p.o. at bedtime. LDL is 88 and HDL is 73 (3) Gilbert's syndrome: Total bilirubin 1.7, with LFTs otherwise normal. Total Time Total Time Spent Total Time Spent (In Minutes): 35 minutes Total Time Includes: Examination of the Patient, Discharge Planning, Medication Reconciliation and Communication With Other Providers (Dr. Garcia) Discharge Plan Discharge Items Patient Disposition: Home - Self-Care Reason For Visit: CHEST PAIN AWAKENDED FROM SLEEP Discharge Diagnosis: Chest pain, no evidence of heart attack Atypical pain Condition: Good Discharge Goals: Diagnostic testing and Improve disease control Activity: As commented below Activity Comment: do not exert yourself until stress test Lifting: None Bathing: No limitations Exercise/Sports: Wait until after follow-up appointment Driving/Machine Use: No limitations Non-emergency contact: Primary Care Provider and Tile Picker Call non-emergency contact if: you have any medication questions, your symptoms worsen, your pain is concerning for you and you have a fever Follow-up/Referrals: Jeff Brand III, MD [Primary Care Provider] - Diet: Heart Healthy Addtl Provider Instructions: Medications: no changes Chest pain no evidence of acute heart attack troponin (heart enzyme) negative x 3 sets which rules out any damage to heart no ischemic changes on EKG Dr. Garcia recommends a stress test as outpatient this week recommend that you call Dr. Capellan's office on Tuesday to schedule FOLLOW UP - call Dr. Capellan to schedule stress test this week Prescriptions: Continued aspirin 81 mg tablet,chewable 162 mg PO DAILY RF: 0 atorvastatin 40 mg tablet 40 mg PO HS Qty: 90 RF: 0 clindamycin HCl 300 mg capsule 600 mg PO UD PRN (Reason: dental appointment) Qty: 2 RF: 0 Stand-Alone Forms: [facility] Discharge Orders: Discharge Order (Routine); Ordered 06/09/19 Ordered By: Braxton Dumas Admission Data Admit Date/Time: 06/09/19 06:11 Attending Provider: Braxton Dumas Admit Provider: Kenton Hernandez Primary Care Provider: Jeff Brand III Other Providers: Kenton Hernandez ; uJan Luis Garcia Service: Telemetry Other Interventions: Discharge Summary Assessment (RN) Last Done: 06/09/19 14:01
[2019-06-09] MEDS ORDERED: ATORVASTATIN 40 MG TAB PO SCH (21:00)
== END 2019-06-09 15:50 | disposition home or self-care (01) ==
LOC: 2E 03:51 → ED 03:51 → SUATTDRO 06:11 → 2E 06:57